=== PATIENT | female | born 1995 | race Caucasian/White ===

== ENCOUNTER → 2016-06-23 | Outpatient (CLI) | payer OTHER ==
[~2016-06-23] MED LIST: ACET325T9 PO; BUPIVACAINE MPF 0.25% 10 ML VIAL. ONE; IOHEXOL 180 MG/ML 10 ML VIAL. ONE; methylPREDNISolone ACETATE 40 MG/ML VIAL. ONE
--- NOTE | 2016-06-24 01:15 | PAIN ---
DATE OF SERVICE: 06/23/2016 DIAGNOSES: 1. Lumbar low back pain. 2. Myofascial pain. HISTORY OF PRESENT ILLNESS: The patient is a 21-year-old female who returns for followup status post lumbar trigger point injections x 2, most recently on 03/17/2016. The patient reports she did very well with 100% improvement for about 2-3 months, pain returning now over the last few weeks in the low back and in the bilateral posterior gluteus region where originally the left was much worse than the right. Now it is essentially equal with pain radiating to both of these regions with significant tenderness with walking, standing, change in positions, especially getting up out of bed in the morning, getting up from a chair to a sitting position, has been bothering when she is driving a car also. The patient reports it is sore and aching across the low back in the mid and low regions of the low back as well as into the gluteus bilaterally. The patient reports no further radiation of pain to the lower extremities. No new motor or sensory deficit. She rates her pain as 8 on a scale of 10, describes it as aching and sore, again worse with position changes and maneuvering. The patient reports that it is worse with walking as well. She has been doing some massage therapy, is also continuing some stretching and strengthening exercises, heat application and is doing all that she knows to try to keep the back ____ massaged. The patient reports no other changes. No new bowel or bladder incontinence or other complaints. PHYSICAL EXAMINATION: VITAL SIGNS: The patient's blood pressure is 112/65, pulse 76, respirations 20, temperature 98.5 degrees Fahrenheit. Height is 4 feet 11 inches. Weight is 115 pounds. GENERAL: The patient is awake, alert, oriented, appropriate, very pleasant demeanor. HEENT: Head shows normocephalic, atraumatic. Extraocular movements are intact and symmetrical. Oral cavity shows mucous membranes are moist and pink. Dentition is intact. NECK: Shows anterior throat supple without palpable lymphadenopathy noted. Swallow reflex is symmetrical. Neck shows full rotation and motion of the cervical spine without difficulty including extension and flexion. CHEST: Shows normal on inspection. Breath sounds are clear to auscultation bilaterally. HEART: Shows S1 and S2 clear. ABDOMEN: Soft, nontender, nondistended. No palpable organomegaly is noted. BACK: Shows spine grossly in midline. Lumbar paraspinous muscle shows some moderate tenderness with palpation and very firm rope-like musculature throughout the middle and lower distribution of paraspinous musculature bilaterally, but appears roughly symmetrical with very firm, very tight and taut with muscle girth on palpation, very firm, very tender without specific radiation, but tender on the areas of trigger point musculature without radiation. No tenderness over the sacrum, but significant tenderness over the superior medial aspect of the left gluteus, but also on the right, more tender on the left with very firm rope-like musculature in the superior aspect of the gluteus on the left side and the right, again more tender with palpation on the left. No radiation is demonstrated as well. EXTREMITIES: The patient's lower extremities show deep tendon reflexes at 2+ in the patellar and tendo calcaneus tendons are 1+. Motor exam is strong with dorsiflexion, extension, quadriceps and hamstring flexion rated 5/5 and are equal. Her options were discussed with the patient at this time. The patient's old chart was reviewed as her current medication regimen and updated. Current review of systems updated today as well. We will plan on trigger point injections as she has done very well with these in the past. Risks were again discussed including, but not limited to bleeding, infection, possibility of intravascular injection sequelae, spread of local anesthetic and numbness, side effects of steroid medication, exacerbation of symptoms and poor results regarding pain control. The patient understands and wishes to proceed. The patient will return to clinic in approximately 1 month or as necessary, would like to call for next appointment. DIAGNOSES: 1. Myofascial pain. 2. Low back pain. PROCEDURE: Trigger point injections, bilateral lumbar paraspinous musculature and bilateral gluteus musculature, under sterile prep and drape using local anesthesia with medications injected 40 mg total of Depo-Medrol plus 11 mL total of bupivacaine with negative aspiration at each injection site. Condition at discharge is stable. The patient tolerated the procedure well, had no complications. MICHAEL COBIAN MD DR: STACIE/tae JOB#: [id number] / [id number]
== END | disposition home or self-care (01) ==
LOC: PNCL 13:34
PROVIDERS: ATTEND Anesthesiology
DX: M54.5 Low back pain (principal)
CPT/HCPCS: 20553; J1030; J3490

== ENCOUNTER → 2016-08-27 | Outpatient (CLI) | payer OTHER ==
[~2016-08-27] MED LIST changes: -IOHEXOL 180 MG/ML 10 ML VIAL. ONE
--- NOTE | 2016-08-27 20:18 | PAIN ---
DATE OF SERVICE: 08/27/2016 PROGRESS NOTE DIAGNOSES: 1. Low back pain. 2. Myofascial pain. HISTORY OF PRESENT ILLNESS: The patient is a 21-year-old female, who returns for followup status post trigger point injections, last seen 06/23/2016. The patient did very well ____ 100% improvement for about 2 months and the pain has been returning now in the mid low back, bilateral hips posteriorly and into the gluteus. The patient reports a gradual return over the last week is a 7 on a scale of 10 currently, currently pounding tight and sharp, constant aching pain in the low back. She has been doing some stretching on her own, heat and massage therapies as well, which has helped until the last week or so, the pain has returned significantly. The patient reports no new motor or sensory deficits, has not awaken her from sleep at night. No new bowel or bladder incontinence or other complaints. PHYSICAL EXAMINATION: VITAL SIGNS: The patient's blood pressure 116/66, pulse 78, respirations 18, temperature 98.0 degrees Fahrenheit. Height is 4 feet 11 inches, weight 121 pounds. GENERAL: The patient is awake, alert, oriented, appropriate, very pleasant demeanor. HEENT: Head shows normocephalic, atraumatic. Extraocular movements are intact and symmetrical. Oral cavity shows mucous membranes moist and pink. Dentition is intact. NECK: Shows anterior throat supple without palpable lymphadenopathy noted. Swallow reflex is symmetrical. CHEST: Shows normal on inspection. Breath sounds are clear to auscultation bilaterally. HEART: Shows S1 and S2 clear. No palpable murmurs are auscultated. ABDOMEN: Soft, nontender, nondistended. No organomegaly, no rebound or guarding demonstrated. BACK: Shows spine grossly in midline. Normal appearing thoracic kyphosis and lumbar lordotic curvature. Lumbar and thoracic paraspinous muscle shows significant tenderness bilaterally with some minor hypertrophy on the right compared to the left in the low thoracic and upper lumbar distribution with significant rope-like musculature throughout these regions bilaterally, very firm, very rope-like and tender consistent with trigger point areas of musculature ____ the lower and middle lumbar distribution as well in the paraspinous muscles, also into the superior, medial, gluteus bilaterally as well. EXTREMITIES: Lower extremities show deep tendon reflexes at 2+ in the patellar and tendo calcaneus tendons, 1+. Motor exam is strong with 5/5 dorsiflexion, extension, quadriceps and hamstring flexion. Options were discussed with the patient and the patient's old chart was reviewed as her current medication regimen updated. Current review of systems updated today as well. We will proceed with trigger point injections of the bilateral thoracic paraspinous musculature, bilateral lumbar paraspinous musculature as well as the bilateral gluteus musculature. Risks were again discussed including, but not limited to bleeding, infection, possibility of intravascular injection sequelae, spread of local anesthetic and numbness, pneumothorax, side effects of steroid medication and poor results regarding pain control. The patient understands and wishes to proceed. The patient will return to clinic in approximately 4 weeks for followup. She was counseled as to return appointment, activity level and side effects to be aware of. DIAGNOSIS: Myofascial pain. PROCEDURE: Trigger point injections of bilateral thoracic and bilateral lumbar paraspinous musculature as well as bilateral gluteus musculature. Medication injected is a total of 40 mg Depo-Medrol plus total of 12 mL of 0.25% bupivacaine. Negative aspiration at each injection. CONDITION AT DISCHARGE: Stable. The patient tolerated procedure well, had no complications. MICHAEL COBIAN MD DR: STACIE/nts JOB#: [id number] / [id number]
== END | disposition home or self-care (01) ==
LOC: PNCL 09:59
PROVIDERS: ATTEND Anesthesiology
DX: M79.1 Myalgia (principal)
CPT/HCPCS: 20553; J1030; J3490

== ENCOUNTER → 2016-12-22 | Outpatient (CLI) | payer OTHER | END | disposition home or self-care (01) | LOC: PNCL 08:03 | PROVIDERS: ATTEND Anesthesiology | DX: M79.1 Myalgia (principal) | CPT/HCPCS: 20553; J1030; J3490 ==

== ENCOUNTER → 2017-01-12 | Outpatient (CLI) | payer OTHER ==
--- NOTE | 2017-01-13 00:17 | PAIN ---
DATE OF SERVICE: 01/12/2017 PROGRESS NOTE FOR PAIN CLINIC DIAGNOSES: Low back pain with myofascial pain. HISTORY OF PRESENT ILLNESS: The patient is a 21-year-old female who returns for followup status post trigger point injections, last seen on 12/22/2016. 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 The patient reports no new motor or sensory deficits, no new bowel or bladder incontinence, still significant pain throughout the mid back and low back, worse in the low back and slightly worse on the right than the left. The patient reports it is a 10 on a scale of 10 at all times and it is 10 today. The patient reports an aching, sharp, tight, dull, stabbing, constant and severe, reports no new motor or sensory deficits, no new bowel or bladder incontinence or other complaints. Reports that it is better with lying down, she has been putting some heat and ice on it as well, which is helping also. The patient reports no new motor or sensory deficits, no new bowel or bladder incontinence or other complaints. PHYSICAL EXAMINATION: VITAL SIGNS: Today, the patient's blood pressure is 117/63, pulse 71, respirations are 20, temperature is 98.1 degrees Fahrenheit. Height is 4 foot 11 inches, weighs 121 pounds. GENERAL: The patient is awake, alert, oriented, appropriate, very pleasant demeanor. HEENT: Head shows normocephalic, atraumatic. Extraocular movements are intact, symmetrical. Oral cavity, mucous membranes are moist and pink. Dentition is intact. NECK: Shows anterior throat supple without palpable lymphadenopathy noted. Swallow reflex is symmetrical. CHEST: Shows normal on inspection. Breath sounds are clear to auscultation bilaterally. HEART: Shows S1 and S2 clear. ABDOMEN: Soft, nontender, nondistended. No palpable organomegaly is noted. No rebound or guarding demonstrated. BACK: Shows spine grossly midline. Normal appearing thoracic kyphosis and some minor flattening of lumbar lordotic curvature. Lumbar paraspinous muscle shows symmetrical on inspection with palpation. It is very firm, very tender throughout the mid thoracic distribution of the paraspinous muscles as well as the lumbar paraspinous musculature upper, middle, and lower distribution with very firm rope-like musculature throughout both regions, slightly more tender on the right than the left, but very firm, very tender bilaterally consistent with trigger point regions of rope-like musculature to the superior and medial gluteus, again worse on the right than the left with very firm rope-like musculature in these regions as well, but without specific radiation. LOWER EXTREMITIES: Showed deep tendon reflexes 2+ in the patellar and tendo calcaneus tendon 1+. Motor exam is strong with 5/5 dorsiflexion, extension, quadriceps and hamstring flexion intact and symmetrical. Options were discussed with the patient. The patient's old chart was reviewed as her current medication regimen updated. Current review of systems updated today as well. We will proceed with trigger point injections of the bilateral thoracic paraspinous musculature, bilateral lumbar paraspinous musculature as well as the bilateral gluteus musculature. Risks were again discussed including, but not limited to bleeding, infection, possibility of intravascular injection sequelae, spread of local anesthetic and numbness, pneumothorax, side effects of steroid medication and poor results regarding pain control. The patient understands and wishes to proceed. The patient will return to clinic in approximately 2 weeks for followup, was counseled on return appointment, activity level and side effects to be aware of. DIAGNOSIS: Myofascial pain. PROCEDURE: Trigger point injections of the bilateral thoracic paraspinous musculature, bilateral lumbar paraspinous musculature, bilateral gluteus musculature using a sterile prep and drape with local anesthetic. MEDICATION INJECTED: A total of 40 mg of Depo-Medrol plus total of 10 mL of 0.25% bupivacaine after negative aspiration at each injection site. CONDITION AT DISCHARGE: Stable. The patient tolerated procedure well, had no complications. MICHAEL COBIAN MD DR: STACIE/tae JOB#: [id number] / [id number]
== END | disposition home or self-care (01) ==
LOC: PNCL 13:41
PROVIDERS: ATTEND Anesthesiology
DX: M79.1 Myalgia (principal)
CPT/HCPCS: 20553; J1030; J3490